=== PATIENT | female | born 1980 | race African-American/Black ===

== ENCOUNTER 2018-03-20 18:21 | Emergency (ER) | payer MEDICAID, OTHER ==
[~2018-03-20] VITALS: Ht 170.2 cm; Wt 68.0 kg
--- NOTE | 2018-03-20 19:03 | Emergency Room Report ---
History of Present Illness General Chief Complaint: Eye Problems Source: Patient Present Illness HPI 37-year-old female presents to the emergency department complaining of intermittent localized swelling to the right lower eyelid off and on for 3 months. Patient reports she has been attempting hot compresses at home with no relief. Patient denies pain at this time she denies visual changes, eye discharge, erythema or trauma to the eye. Patient denies foreign body/ scratching sensation. Denies Loss of vision, Floaters, Flashing lights, Diplopia/blurry vision, Increased tearing. Pt. reports some itchiness, denies hx of allergies. denies sneezing or symptoms in the alternate eye. Pt. denies corrective lens use. Allergies: Coded Allergies: No Known Allergies (Unverified , 10/12/15) Patient History Past Medical History: see triage record Past Surgical History: none Pertinent Family History: none Last Menstrual Period: 02/27/18 Now: No Immunizations: UTD Reviewed Nursing Documentation: PMH: Agreed; PSxH: Agreed Nursing Documentation-PMH Past Medical History: No History, Except For Hx Cardiac Problems: No Hx Hypertension: No Hx Pacemaker: No Hx Asthma: No Hx COPD: No Hx Diabetes: No Hx Cancer: No Hx Gastrointestinal Problems: No Hx Dialysis: No Hx Neurological Problems: No Hx Cerebrovascular Accident: No Hx Seizures: No Review of Systems All Other Systems: negative except mentioned in HPI Physical Exam Vital Signs Date Time Temp Pulse Resp B/P (MAP) Pulse Ox O2 Delivery O2 Flow Rate FiO2 03/20/18 18:31 98.8 99 16 117/69 96 Room Air 98.8 Sp02 EP Interpretation: reviewed, normal General Appearance: no apparent distress, alert, GCS 15, non-toxic Head: normocephalic, atraumatic Eyes: right eye other - chalazion noted, no purulent head visible - upon lid flip, no obvious fb. no evidence of orbital or periorbital cellulitis. ; bilateral eye normal inspection, bilateral eye PERRL, bilateral eye visual acuity ENT: hearing grossly normal, normal voice Neck: full range of motion Respiratory: chest non-tender, lungs clear, normal breath sounds, speaking full sentences Cardiovascular #1: regular rate, rhythm Musculoskeletal: back normal, gait/station normal, normal range of motion, non- tender Neurologic: alert, oriented x3, responsive, motor strength/tone normal, sensory intact, normal gait, speech normal, grossly normal Psychiatric: judgement/insight normal Skin: normal color, no rash, warm/dry, well hydrated Medical Decision Making PA Attestation Dr. So is my supervising Physician whom patient management has been discussed with. Diagnostic Impression: Primary Impression: Chalazion of right lower eyelid ER Course 37-year-old female presents to the emergency department complaining of intermittent localized swelling to the right lower eyelid off and on for 3 months. Patient reports she has been attempting hot compresses at home with no relief. Patient denies pain at this time she denies visual changes, eye discharge, erythema or trauma to the eye. Patient denies foreign body/ scratching sensation. Denies Loss of vision, Floaters, Flashing lights, Diplopia/blurry vision, Increased tearing. Pt. reports some itchiness, denies hx of allergies. denies sneezing or symptoms in the alternate eye. Pt. denies corrective lens use. Ddx considered but are not limited to: FB, Corneal Ulcer, conjunctivitis. Iridis, hordeolum, chalazion. Vital signs: are WNL, pt. is afebrile H&PE are most consistent with: chalazion of the right lower eyelid. ORDERS: None required at this time ED INTERVENTIONS: none at this time. DISCHARGE: At this time pt. is stable for d/c to home. Will provide printed patient care instructions, and any necessary prescriptions. Care plan and follow up instructions have been discussed with the patient prior to discharge. Last Vital Signs Date Time Temp Pulse Resp B/P (MAP) Pulse Ox O2 Delivery O2 Flow Rate FiO2 03/20/18 18:31 98.8 99 16 117/69 96 Room Air 98.8 Disposition: HOME, SELF-CARE Condition: Stable Scripts Erythromycin Base (Erythromycin) 1 Gm Oint...g. 1 APPLIC OP BID for 7 Days, #1 GM Prov: Dana Chavez 03/20/18 Referrals: NON PHYSICIAN (PCP) Patient Instructions: Chalazion Additional Instructions: Take medications as directed. Follow up with a [employer] in 3 days, even if your symptoms have resolved. --Please review list of primary care clinics, if you do not already have a primary care provider Return sooner to ED if new symptoms occur, or current symptoms become worse. - Please note that this Emergency Department Report was dictated using Tripbirdstile shader technology software, occasionally this can lead to erroneous entry secondary to interpretation by the dictation equipment. Dana Chavez Mar 20, 2018 19:03
[2018-03-20] MEDS ORDERED: ERYTHROMYCIN1 G1 OP (19:04)
[2018-03-20 19:18] VITALS: BP 117/69
== END 2018-03-20 19:43 | disposition home or self-care (01) ==
LOC: EMR 18:52
DX: H00.12 Chalazion right lower eyelid (principal)
CPT/HCPCS: 99283

== ENCOUNTER 2018-05-15 11:35 | Emergency (ER) | payer MEDICAID ==
[~2018-05-15] VITALS: Ht 170.2 cm; Wt 70.3 kg
[~2018-05-15 11:35] MED LIST: ERYTHROMYCIN1 G1 OP
[2018-05-15 11:59] VITALS: BP 118/73
--- NOTE | 2018-05-15 12:03 | Emergency Room Report ---
History of Present Illness General Chief Complaint: Diarrhea Source: Patient Present Illness HPI 37-year-old female patient presents ER complaining of diarrhea for the past 3 days. Reports she thinks the diarrhea began after eating a burrito from a truck on the street. Denies blood in her stool. reports stool is watery, denies frothy stool. Denies recent travel outside the states. Denies fever, chest pain, shortness breath, abdominal pain, vomiting. Reports has been drinking water and eating foods without difficulty. Allergies: Coded Allergies: No Known Allergies (Unverified , 10/12/15) Patient History Past Medical History: see triage record Last Menstrual Period: 1 month Now: No Reviewed Nursing Documentation: PMH: Agreed; PSxH: Agreed Nursing Documentation-PMH Past Medical History: No Stated History Hx Cardiac Problems: No Hx Hypertension: No Hx Pacemaker: No Hx Asthma: No Hx COPD: No Hx Diabetes: No Hx Cancer: No Hx Gastrointestinal Problems: No Hx Dialysis: No Hx Neurological Problems: No Hx Cerebrovascular Accident: No Hx Seizures: No Review of Systems All Other Systems: negative except mentioned in HPI Physical Exam Vital Signs Date Time Temp Pulse Resp B/P (MAP) Pulse Ox O2 Delivery O2 Flow Rate FiO2 05/15/18 11:49 98.8 118 18 118/73 98 Room Air 98.8 Sp02 EP Interpretation: reviewed, normal General Appearance: well appearing, no apparent distress, alert, GCS 15, non- toxic Head: normocephalic, atraumatic Eyes: bilateral eye normal inspection, bilateral eye PERRL ENT: hearing grossly normal, normal pharynx, no angioedema, normal voice, uvula midline, moist mucus membranes Neck: full range of motion Respiratory: lungs clear, normal breath sounds, no rhonchi, no respiratory distress, no accessory muscle use, no wheezing, speaking full sentences Cardiovascular #1: regular rate, rhythm, no edema Gastrointestinal: non tender, soft, no mass, non-distended, no guarding, no rebound, other - negative Rovsing, negative Hagen Genitourinary: no CVA tenderness Musculoskeletal: back normal, digits/nails normal, gait/station normal, normal range of motion, non-tender Neurologic: alert, oriented x3, responsive, motor strength/tone normal, sensory intact Skin: no rash Medical Decision Making PA Attestation Dr. Mccormick is my supervising Physician whom patient management has been discussed with. Diagnostic Impression: Primary Impression: Diarrhea ER Course Pt. presents to the ED c/o diarrhea. Ddx considered but are not limited to viral syndrome, gastritis, enteritis, food poisoning. Vital signs: are WNL, pt. is afebrile at discharge. ED COURSE: Physical exam benign, no abdominal TTP. Patient informed of likely viral cause of symptoms. No fever, no blood in stool, no recent travel or hospitalizations, does not require abx treatment at this time. No signs of dehydration, moist mucus membranes. Patient reports eating and drinking normally. DISCHARGE: No rx required at this time. Patient instructed on BRAT diet. Patient instructed to remain hydrated, drink plenty of fluids. Patient questions asked and answered. Patient states understanding and agreement to treatment plan. At this time pt. is stable for d/c to home. Patient is resting comfortably, laughing, in no acute distress, nontoxic appearing. Will provide printed patient care instructions, and any necessary prescriptions. Care plan and follow up instructions have been discussed with the patient prior to discharge. Patient instructed to followup with PCP in 3-5 days. Patient reports understanding and agreement to treatment plan. Patient questions asked and answered. ER precautions given; patient instructed to return to ER for new or worsening of symptoms including but not limited to fever, intractable vomiting, severe abdominal pain, blood in stool. - Please note that this Emergency Department Report was dictated using [employer] laminating machine tender technology software, occasionally this can lead to erroneous entry secondary to interpretation by the dictation equipment. Last Vital Signs Date Time Temp Pulse Resp B/P (MAP) Pulse Ox O2 Delivery O2 Flow Rate FiO2 05/15/18 11:59 98.8 18 118/73 98 Room Air 98.8 05/15/18 11:49 118 Disposition: HOME, SELF-CARE Condition: Stable Patient Instructions: Diarrhea, Adult, Food Poisoning Additional Instructions: Followup with primary care provider in 3 -5 days. Avoid spicy foods, avoid dairy foods. BRAT diet: bananas, rice, apple sauce, toast. Consider OTC Immodium for diarrhea and Tylenol for pain symptoms. Take medications as directed. Patient questions asked and answered. ER precautions given, patient instructed to return to ER immediately for any new or worsening of symptoms. Raymundo Anderson May 15, 2018 12:03
[2018-05-15 12:09] VITALS: BP 118/73
== END 2018-05-15 12:09 | disposition home or self-care (01) ==
LOC: EMR 12:00
DX: R19.7 Diarrhea, unspecified (principal)
CPT/HCPCS: 99282

== ENCOUNTER 2019-06-04 19:23 | Emergency (ER) | payer MEDICAID ==
[~2019-06-04] VITALS: Ht 170.2 cm; Wt 73.9 kg
[2019-06-04 19:30] VITALS: BP 113/77
--- NOTE | 2019-06-04 19:31 | NUR ---
ED Nurse Note: Late entry; PT walked into ED came from home with spider bite, VS stable, no respiratory distress. Will continue to monitor.
[2019-06-04] MEDS ORDERED: RISPERDAL0.5 MG ORAL (19:36)
[2019-06-04] MEDS ORDERED: ABILIFY30 MG ORAL (19:36)
[2019-06-04] MEDS ORDERED: MIRTAZAPINE30 MG ORAL (19:36)
--- NOTE | 2019-06-04 20:16 | Emergency Room Report ---
History of Present Illness General Chief Complaint: Animal Bite Source: Patient Present Illness HPI 38-year-old female with no significant past medical history who admits to drinking alcohol prior to coming here here complaining of minimal pain and swelling left wrist after being bit by a black . Patient reports that she observed a blanket of getting her over an hour ago. Denies fever and chills, nausea vomiting, anaphylaxis, chest pain shortness of breath. Small bite gurmeet is noted left wrist however does not appear to be secondary to spider bite. Patient is rating pain 3 out of 10 without radiation denying any tingling or numbness. Complains of pruritus. Patient reports that she poured vodka over the affected area. Denies other associated symptoms. Allergies: Coded Allergies: No Known Allergies (Unverified , 10/12/15) Patient History Past Medical History: see triage record Past Surgical History: unable to obtain Pertinent Family History: none Social History: Reports: alcohol use Last Menstrual Period: 06/04/19 Now: No Immunizations: UTD Reviewed Nursing Documentation: PMH: Agreed; PSxH: Agreed Nursing Documentation-PMH Past Medical History: No History, Except For Hx Cardiac Problems: No Hx Hypertension: No Hx Pacemaker: No Hx Asthma: No Hx COPD: No Hx Diabetes: No Hx Cancer: No Hx Gastrointestinal Problems: No Hx Dialysis: No History Of Psychiatric Problem: Yes - schizoaffective, depression, bipolar Hx Neurological Problems: No Hx Cerebrovascular Accident: No Hx Seizures: No Review of Systems All Other Systems: negative except mentioned in HPI Physical Exam Vital Signs Date Time Temp Pulse Resp B/P (MAP) Pulse Ox O2 Delivery O2 Flow Rate FiO2 06/04/19 19:30 98.2 97 16 113/77 (89) 100 Room Air Sp02 EP Interpretation: reviewed, normal General Appearance: no apparent distress, alert, GCS 15, non-toxic Head: normocephalic, atraumatic Eyes: bilateral eye normal inspection, bilateral eye PERRL ENT: hearing grossly normal, normal pharynx, no angioedema, normal voice Neck: full range of motion, supple/symm/no masses Respiratory: chest non-tender, lungs clear, normal breath sounds, no wheezing, speaking full sentences Cardiovascular #1: normal inspection, normal peripheral pulses, regular rate, rhythm, no edema, no murmur, normal capillary refill Cardiovascular #2: 2+ radial (R), 2+ radial (L) Gastrointestinal: normal bowel sounds, non tender, soft, no mass, non-distended , no guarding, no rebound Rectal: deferred Genitourinary: normal inspection, no CVA tenderness Musculoskeletal: back normal, gait/station normal, normal range of motion, non- tender, no calf tenderness Neurologic: alert, oriented x3, responsive, motor strength/tone normal, sensory intact, speech normal Psychiatric: judgement/insight normal, memory normal, mood/affect normal, no suicidal/homicidal ideation Skin: other - non infected insect bite left wrist Lymphatic: no adenopathy Medical Decision Making PA Attestation All diagnoses and treatment plans were reviewed and discussed with my supervising physician Dr. Encarnacion Diagnostic Impression: Primary Impression: Infected insect bite ER Course 38-year-old female with no significant past medical history who admits to drinking alcohol prior to coming here here complaining of minimal pain and swelling left wrist after being bit by a black . Patient reports that she observed a blanket of getting her over an hour ago. Denies fever and chills, nausea vomiting, anaphylaxis, chest pain shortness of breath. Small bite gurmeet is noted left wrist however does not appear to be secondary to spider bite. Patient is rating pain 3 out of 10 without radiation denying any tingling or numbness. Complains of pruritus. Patient reports that she poured vodka over the affected area. Denies other associated symptoms. Ddx considered but are not limited to: Eczema, scabies, lice, infected insect bite, noninfected insect bite Vital signs: are WNL, pt. is afebrile H&PE are most consistent with: insect bite ORDERS: augmentin as patient appears some of the influence of alcohol may scratch the affected area and cause infection., hydrocortisone cream ED INTERVENTIONS: None required at this time. DISCHARGE: At this time pt. is stable for d/c to home. Will provide printed patient care instructions, and any necessary prescriptions. Care plan and follow up instructions have been discussed with the patient prior to discharge. Patient to follow-up with primary care physician if worsening symptoms return to the emergency room Last Vital Signs Date Time Temp Pulse Resp B/P (MAP) Pulse Ox O2 Delivery O2 Flow Rate FiO2 06/04/19 19:30 98.2 97 16 113/77 (89) 100 Room Air Disposition: HOME, SELF-CARE Condition: Stable Scripts Hydrocortisone/Aloe Vera 1%* (HYDROCORTISONE-ALOE 1% CREAM*) Y Cr 1 APPLIC TOPIC Q6H PRN for Itching, #30 GM Prov: Danya Gilbert 06/04/19 Amoxicillin/Potassium Clav 875-125* (AUGMENTIN 875-125 TABLET*) 1 Each Tablet 1 TAB ORAL TWICE A DAY for 7 Days, #14 TAB Prov: Danya Gilbert 06/04/19 Patient Instructions: Insect Bite, [id number] Additional Instructions: Take medication as directed, follow-up with primary DrJesusita, if worsening symptoms return to emergency room Danya Gilbert Jun 04, 2019 20:16
[2019-06-04] MEDS ORDERED: AUGMENTIN 875-1 EAC1 ORAL (20:17)
[2019-06-04] MEDS ORDERED: HYDROCORTISONE-30 GM TOPIC (20:17)
[2019-06-04 20:22] VITALS: BP 113/77
--- NOTE | 2019-06-04 20:22 | NUR ---
ER DISCHARGE NOTE: Patient is cleared to be discharged per ERMD, pt is aox4, on room air, with stable vital signs. pt was given dc and prescription instructions, pt was able to verbalize understanding, pt id band and iv site removed without complications. pt is able to ambulate with steady gait. pt took all belongings.
== END 2019-06-04 20:22 | disposition home or self-care (01) ==
LOC: EMR 20:13
DX: S60.862A Insect bite (nonvenomous) of left wrist, initial encounter (principal); L08.9 Local infection of the skin and subcutaneous tissue, unspecified; F25.9 Schizoaffective disorder, unspecified; F10.10 Alcohol abuse, uncomplicated; F19.10 Other psychoactive substance abuse, uncomplicated; W57.XXXA Bitten or stung by nonvenomous insect and other nonvenomous arthropods, initial encounter; Y92.9 Unspecified place or not applicable
CPT/HCPCS: 99282